=== PATIENT | female | born 1990 | race Two or more races ===

== ENCOUNTER 2021-10-23 10:28 | Inpatient (IN) | payer MEDICAID, OTHER ==
[~2021-10-23] VITALS: Ht 154.9 cm; Wt 84.9 kg
[2021-10-23 12:09] LABS: Basophils # (auto) 0.1 10 ^3/uL (0-0.2); Basophils % (auto) 1.2 % (0.0-2.0); Eosinophils # (auto) 0.2 10 ^3/uL (0-0.8); Eosinophils % (auto) 2.9 % (0.0-7.0); Hematocrit 41.9 % (36.0-46.0); Hemoglobin 14.2 g/dL (12.2-16.2); Lymphocytes # (auto) 2.2 10 ^3/uL (0.4-5.4); Lymphocytes % (auto) 29.7 % (10.0-50.0); Mean Corpuscular Hgb Conc. 33.9 g/dL (32.0-36.0); Mean Corpuscular Volume 88.5 fL (80.0-100.0); Monocytes # (auto) 0.6 10 ^3/uL (0-1.3); Monocytes % (auto) 7.7 % (0.0-12.0); Neutrophils # (auto) 4.3 10 ^3/uL (1.6-8.6); Neutrophils % (auto) 58.5 % (37.0-80.0); Nucleated Red Blood Cells % 0.3 %; Red Blood Cells 4.73 10^6/uL (4.0-5.20); Red Cell Distribution Width 13.4 % (11.8-14.3); White Blood Cell 7.3 10^3/uL (4.4-10.8)
[2021-10-23 12:22] LABS: Calcium 9.2 mg/dL (8.5-10.1); Potassium 3.8 mmol/L (3.5-5.1)
[2021-10-23 12:27] LABS: BUN/Creatinine Ratio 13.7; Bilirubin, Total 0.4 mg/dL (0.2-1.0); Total Protein 8.2 g/dL (6.4-8.2)
[2021-10-23 20:22] LABS: Urine Bacteria NONE SEEN /hpf (None Seen); Urine Blood 1+ /uL (Negative); Urine Mucus FEW (None Seen); Urine Specific Gravity 1.032 (1.001-1.035); Urine WBC 1 /hpf (0 - 5)
[2021-10-23] MEDS ORDERED: ENOXAPARIN SOD 40 MG/0.4 ML SYRINGE SC ONE (21:45)
[2021-10-23] MEDS ORDERED: ONDANSETRON HCL 4 MG/2 ML VIAL IV PRN (21:45)
[2021-10-23] MEDS ORDERED: HYDROmorphone HCL 2 MG/ML VL IV PRN (21:45)
[2021-10-23] MEDS ORDERED: SODIUM CHLORIDE 0.9% 1,000 ML IV ONE (21:45)
[2021-10-23] MEDS ORDERED: MORPHINE SULFATE INJECTION 2 MG/ML SYRG IV PRN (21:45)
[2021-10-23] MEDS ORDERED: NITROGLYCERIN 0.4 MG SL TAB SL PRN (21:45)
[2021-10-23] MEDS ORDERED: PANTOPRAZOLE 40 MG TAB PO ONE (22:00)
[2021-10-23] MEDS: CIPROFLOXACIN 400MG/200ML 200 ML IV SCH (22:45)
[2021-10-23] MEDS: HYDROcodone-ACET 5/325MG TAB PO PRN (23:05)
[2021-10-24] MEDS: metroNIDAZOLE 500MG/100ML 100 ML IV SCH ×4 (00:28→22:57)
[2021-10-24 01:45] VITALS: BP 126/87
[2021-10-24] MEDS ORDERED: PNEUMOCOCCAL VACC POLYS 25 MCG/0.5 ML VIAL IM ONE (02:00)
[2021-10-24] MEDS ORDERED: INFLUENZA QUAD 2021-2022 0.5 ML SYRG IM ONE (02:00)
[2021-10-24 06:02] LABS: Basophils # (auto) 0.1 10 ^3/uL (0-0.2); Basophils % (auto) 0.9 % (0.0-2.0); Eosinophils # (auto) 0.2 10 ^3/uL (0-0.8); Eosinophils % (auto) 3.4 % (0.0-7.0); Hemoglobin 13.4 g/dL (12.2-16.2); Lymphocytes # (auto) 2.6 10 ^3/uL (0.4-5.4); Lymphocytes % (auto) 36.3 % (10.0-50.0); Mean Corpuscular Hemoglobin 30.4 pg (28.0-32.0); Mean Corpuscular Hgb Conc. 34.4 g/dL (32.0-36.0); Mean Corpuscular Volume 88.4 fL (80.0-100.0); Monocytes # (auto) 0.6 10 ^3/uL (0-1.3); Monocytes % (auto) 8.1 % (0.0-12.0); Neutrophils # (auto) 3.7 10 ^3/uL (1.6-8.6); Neutrophils % (auto) 51.3 % (37.0-80.0); Nucleated Red Blood Cells % 0.1 %; Red Blood Cells 4.41 10^6/uL (4.0-5.20); Red Cell Distribution Width 13.2 % (11.8-14.3); White Blood Cell 7.2 10^3/uL (4.4-10.8)
[2021-10-24 06:24] LABS: Albumin 3.6 g/dL (3.4-5.0); Calcium 8.6 mg/dL (8.5-10.1); Potassium 3.7 mmol/L (3.5-5.1)
[2021-10-24 06:27] LABS: Bilirubin, Total 0.4 mg/dL (0.2-1.0); Total Protein 7.2 g/dL (6.4-8.2)
[2021-10-24 09:00] VITALS: BP 91/61
[2021-10-24] MEDS: CIPROFLOXACIN 400MG/200ML 200 ML IV SCH ×2 (10:23→21:29)
[2021-10-24 12:19] VITALS: BP 107/58
[2021-10-24 13:00] VITALS: BP 105/70
[2021-10-24 14:26] LABS: INR 1.07 (0.9-1.15); Partial Thromboplastin Time 30.9 sec (23.6-33.0)
[2021-10-24 17:00] VITALS: BP 95/60
[2021-10-24 22:00] VITALS: BP 110/79
[2021-10-24] MEDS: HYDROcodone-ACET 5/325MG TAB PO PRN (22:32)
[2021-10-25 05:00] VITALS: BP 102/67
[2021-10-25] MEDS: metroNIDAZOLE 500MG/100ML 100 ML IV SCH ×3 (05:54→23:29)
[2021-10-25] MEDS ORDERED: BUPIVACAINE 0.25% INJ 50ML VIAL ONE (06:47)
[2021-10-25] MEDS ORDERED: LIDOCAINE 1% HCL (LOCAL ANESTH.) INJ 20ML MDV ONE (06:47)
[2021-10-25] MEDS ORDERED: DOXAPRAM HCL 20 MG/ML 20ML VIAL INJ IV ONE (06:54)
[2021-10-25] MEDS ORDERED: SUCCINYLCHOLINE CHLORIDE 20 MG/ML 10ML VIAL IV ONE (06:54)
[2021-10-25] MEDS ORDERED: CISATRACURIUM BESYLATE (2MG/ML) 5ML VIAL IV ONE (06:55)
[2021-10-25] MEDS ORDERED: ROCURONIUM 10MG/ML 10ML VIAL IV ONE (06:55)
[2021-10-25] MEDS ORDERED: NEOSTIGMINE 1 MG/ML INJ (10mg/10ML VIAL) ONE (07:11)
[2021-10-25] MEDS ORDERED: GLYCOPYRROLATE 0.2 MG/ML 1ML VIAL ONE (07:11)
[2021-10-25] MEDS ORDERED: PROPOFOL 10 MG/ML 20 ML IV ONE (07:11)
[2021-10-25] MEDS ORDERED: ONDANSETRON HCL 4 MG/2 ML VIAL ONE (07:11)
[2021-10-25] MEDS ORDERED: SODIUM CHLORIDE LOCK 10 ML ONE (07:11)
[2021-10-25] MEDS ORDERED: fentaNYL CITRATE 5 ML ONE (07:11)
[2021-10-25] MEDS ORDERED: MIDAZOLAM HCL 2MG/2ML 2ml VIAL (1mg/ml) ONE (07:11)
[2021-10-25] MEDS ORDERED: HYDROmorphone HCL 2 MG/ML VL IV PRN (07:15)
[2021-10-25] MEDS ORDERED: MORPHINE SULFATE 4 MG/ML SYR/VIAL IV PRN (07:15)
[2021-10-25] MEDS ORDERED: METOCLOPRAMIDE HCL 5MG/ml INJ 2ml VIAL IV PRN (07:15)
[2021-10-25] MEDS ORDERED: CLINDAMYCIN 600MG IV 50 ML IV ONE (07:31)
[2021-10-25] MEDS ORDERED: BUPIVACAINE W/ EPINEPH 0.25% INJ 50ML MDV ONE (07:38)
[2021-10-25] MEDS ORDERED: DexAMETHasone SOD PHOS 10MG/1ML VIAL INJ ONE (07:42)
[2021-10-25] MEDS: CIPROFLOXACIN 400MG/200ML 200 ML IV SCH ×2 (10:00→21:34)
[2021-10-25] MEDS ORDERED: POVIDONE IODINE 10 % TOPICAL OINT 30GM TOP ONE (10:12)
[2021-10-25] MEDS ORDERED: SODIUM CHLORIDE 0.9% 1,000 ML IV SCH (10:45)
[2021-10-25] MEDS ORDERED: HYDROmorphone HCL 2 MG/ML VL ONE (10:47)
[2021-10-25 13:00] VITALS: BP 115/67
[2021-10-25 17:00] VITALS: BP 107/69
[2021-10-25] MEDS: HYDROcodone-ACET 5/325MG TAB PO PRN (20:57)
[2021-10-25 22:00] VITALS: BP 97/55
[2021-10-25 23:47] LABS: Basophils # (auto) 0 10 ^3/uL (0-0.2); Basophils % (auto) 0.1 % (0.0-2.0); Eosinophils # (auto) 0 10 ^3/uL (0-0.8); Hematocrit 40.9 % (36.0-46.0); Lymphocytes # (auto) 0.5 10 ^3/uL (0.4-5.4); Mean Corpuscular Hemoglobin 30.4 pg (28.0-32.0); Mean Corpuscular Hgb Conc. 34.2 g/dL (32.0-36.0); Mean Corpuscular Volume 88.7 fL (80.0-100.0); Monocytes # (auto) 0.4 10 ^3/uL (0-1.3); Monocytes % (auto) 2.4 % (0.0-12.0); Neutrophils % (auto) 94.5 % (37.0-80.0); Red Blood Cells 4.61 10^6/uL (4.0-5.20)
[2021-10-26 00:03] LABS: Albumin 3.6 g/dL (3.4-5.0); Calcium 8.6 mg/dL (8.5-10.1); Potassium 3.9 mmol/L (3.5-5.1)
[2021-10-26 00:07] LABS: BUN/Creatinine Ratio 9.9; Bilirubin, Total 0.2 mg/dL (0.2-1.0); Total Protein 7.5 g/dL (6.4-8.2)
[2021-10-26 05:00] VITALS: BP 90/54
[2021-10-26] MEDS: metroNIDAZOLE 500MG/100ML 100 ML IV SCH ×3 (05:46→23:00)
[2021-10-26 08:23] LABS: Basophils # (auto) 0.1 10 ^3/uL (0-0.2); Basophils % (auto) 0.3 % (0.0-2.0); Eosinophils # (auto) 0 10 ^3/uL (0-0.8); Eosinophils % (auto) 0.1 % (0.0-7.0); Hemoglobin 12.8 g/dL (12.2-16.2); Lymphocytes # (auto) 1.6 10 ^3/uL (0.4-5.4); Lymphocytes % (auto) 10.6 % (10.0-50.0); Mean Corpuscular Hemoglobin 30.6 pg (28.0-32.0); Mean Corpuscular Hgb Conc. 34.7 g/dL (32.0-36.0); Mean Corpuscular Volume 88.3 fL (80.0-100.0); Monocytes # (auto) 1.2 10 ^3/uL (0-1.3); Monocytes % (auto) 7.7 % (0.0-12.0); Neutrophils # (auto) 12.5 10 ^3/uL (1.6-8.6); Neutrophils % (auto) 81.3 % (37.0-80.0); Red Blood Cells 4.19 10^6/uL (4.0-5.20); Red Cell Distribution Width 13.2 % (11.8-14.3); White Blood Cell 15.4 10^3/uL (4.4-10.8)
[2021-10-26 08:36] LABS: Potassium 3.6 mmol/L (3.5-5.1)
[2021-10-26 08:41] LABS: BUN/Creatinine Ratio 9.4; Calcium 8.6 mg/dL (8.5-10.1)
[2021-10-26 09:00] VITALS: BP 105/67
[2021-10-26] MEDS: CIPROFLOXACIN 400MG/200ML 200 ML IV SCH ×2 (10:00→21:56)
[2021-10-26 13:00] VITALS: BP 107/75
[2021-10-26] MEDS: HYDROcodone-ACET 5/325MG TAB PO PRN ×2 (13:29→19:02)
[2021-10-26 17:00] VITALS: BP 112/67
[2021-10-26] MEDS: DOCUSATE SOD 100 MG CAP PO PRN (19:03)
[2021-10-26 21:44] VITALS: BP 107/65
[2021-10-27] MEDS: HYDROcodone-ACET 5/325MG TAB PO PRN ×2 (02:54→10:20)
[2021-10-27 04:37] VITALS: BP 112/63
[2021-10-27 06:04] LABS: Basophils # (auto) 0.1 10 ^3/uL (0-0.2); Basophils % (auto) 0.7 % (0.0-2.0); Eosinophils # (auto) 0.1 10 ^3/uL (0-0.8); Eosinophils % (auto) 0.8 % (0.0-7.0); Hematocrit 35.8 % (36.0-46.0); Hemoglobin 12.4 g/dL (12.2-16.2); Lymphocytes # (auto) 2.8 10 ^3/uL (0.4-5.4); Lymphocytes % (auto) 25.9 % (10.0-50.0); Mean Corpuscular Hemoglobin 30.7 pg (28.0-32.0); Mean Corpuscular Hgb Conc. 34.7 g/dL (32.0-36.0); Mean Corpuscular Volume 88.6 fL (80.0-100.0); Monocytes # (auto) 0.8 10 ^3/uL (0-1.3); Monocytes % (auto) 7.2 % (0.0-12.0); Neutrophils % (auto) 65.4 % (37.0-80.0); Nucleated Red Blood Cells % 0.1 %; Red Blood Cells 4.04 10^6/uL (4.0-5.20); Red Cell Distribution Width 13.4 % (11.8-14.3); White Blood Cell 10.7 10^3/uL (4.4-10.8)
[2021-10-27] MEDS: metroNIDAZOLE 500MG/100ML 100 ML IV SCH ×3 (06:13→23:30)
[2021-10-27 06:14] LABS: Potassium 3.6 mmol/L (3.5-5.1)
[2021-10-27 06:19] LABS: Albumin 3.1 g/dL (3.4-5.0); BUN/Creatinine Ratio 9.7; Bilirubin, Total 0.3 mg/dL (0.2-1.0); Calcium 8.5 mg/dL (8.5-10.1); Total Protein 6.5 g/dL (6.4-8.2)
[2021-10-27 09:00] VITALS: BP 107/69
[2021-10-27] MEDS: DOCUSATE SOD 100 MG CAP PO PRN (10:19)
[2021-10-27] MEDS: CIPROFLOXACIN 400MG/200ML 200 ML IV SCH ×2 (10:22→22:30)
[2021-10-27] MEDS ORDERED: HYDR1TAB97 PO (10:54)
[2021-10-27] MEDS ORDERED: CIPR500T4 PO (10:54)
[2021-10-27] MEDS ORDERED: ACET1CAP14 PO (10:54)
[2021-10-27] MEDS ORDERED: DOCU100C10 PO (10:54)
[2021-10-27] MEDS ORDERED: SENNA 8.6 MG TAB PO PRN (11:00)
[2021-10-27] MEDS ORDERED: POLYETHYLENE GLYCOL 17 GM PWDR PO PRN (11:00)
[2021-10-27 13:00] VITALS: BP 109/66
[2021-10-28] MEDS: metroNIDAZOLE 500MG/100ML 100 ML IV SCH ×2 (05:20→13:12)
[2021-10-28 06:08] LABS: Basophils # (auto) 0.1 10 ^3/uL (0-0.2); Basophils % (auto) 0.6 % (0.0-2.0); Eosinophils # (auto) 0.2 10 ^3/uL (0-0.8); Eosinophils % (auto) 2.6 % (0.0-7.0); Hematocrit 38.3 % (36.0-46.0); Hemoglobin 13.3 g/dL (12.2-16.2); Lymphocytes % (auto) 32.6 % (10.0-50.0); Mean Corpuscular Hemoglobin 30.9 pg (28.0-32.0); Mean Corpuscular Hgb Conc. 34.8 g/dL (32.0-36.0); Mean Corpuscular Volume 88.6 fL (80.0-100.0); Monocytes # (auto) 0.7 10 ^3/uL (0-1.3); Monocytes % (auto) 7.1 % (0.0-12.0); Neutrophils # (auto) 5.2 10 ^3/uL (1.6-8.6); Neutrophils % (auto) 57.1 % (37.0-80.0); Red Blood Cells 4.32 10^6/uL (4.0-5.20); Red Cell Distribution Width 13.2 % (11.8-14.3); White Blood Cell 9.2 10^3/uL (4.4-10.8)
[2021-10-28 06:18] LABS: Potassium 3.7 mmol/L (3.5-5.1)
[2021-10-28 06:21] VITALS: BP 103/63
[2021-10-28 06:24] LABS: Albumin 3.1 g/dL (3.4-5.0); BUN/Creatinine Ratio 10.3; Bilirubin, Total 0.4 mg/dL (0.2-1.0); Calcium 8.9 mg/dL (8.5-10.1); Total Protein 7.2 g/dL (6.4-8.2)
[2021-10-28 08:00] VITALS: BP 120/42
[2021-10-28 08:30] VITALS: BP 120/42
[2021-10-28] MEDS: CIPROFLOXACIN 400MG/200ML 200 ML IV SCH (09:43)
[2021-10-28 12:55] VITALS: BP 107/58
== END 2021-10-28 17:48 | disposition home or self-care (01) | DRG 263 ==
LOC: ER 10:28 → OVERFLOW 21:35 → WEST WING 23:00
PROVIDERS: ADMIT Surgery; ATTEND Internal Medicine
PROC: 3E02340 Introduction of Influenza Vaccine into Muscle, Percutaneous Approach (ICD-10-PCS; 2021-10-24)
PROC: 0DNU4ZZ Release Omentum, Percutaneous Endoscopic Approach (ICD-10-PCS; 2021-10-25)
PROC: 0FT44ZZ Resection of Gallbladder, Percutaneous Endoscopic Approach (ICD-10-PCS; principal; 2021-10-25 07:29)
DX: K80.13 Calculus of gallbladder with acute and chronic cholecystitis with obstruction (principal); K82.A1 Gangrene of gallbladder in cholecystitis; K66.0 Peritoneal adhesions (postprocedural) (postinfection); Z20.822 Contact with and (suspected) exposure to COVID-19; Z88.0 Allergy status to penicillin; Z83.3 Family history of diabetes mellitus; Z82.49 Family history of ischemic heart disease and other diseases of the circulatory system; Z23 Encounter for immunization
CPT/HCPCS: 36415; 74181; 76705; 78226; 80048; 80053; 81001; 81025; 82150; 83690; 85025; 85610; 85730; 86850; 86900; 86901; 87426; 96372; G0378; J0330; J1100; J2001; J2250; J2405; J2704; J3490

== ENCOUNTER 2021-11-03 11:26 | Emergency (ER) | payer MEDICAID ==
[~2021-11-03] VITALS: Ht 154.9 cm; Wt 77.6 kg
[~2021-11-03 11:26] MED LIST: ACET1CAP14 PO; CIPR500T4 PO; DOCU100C10 PO; HYDR1TAB97 PO
[2021-11-03 12:03] LABS: Basophils # (auto) 0.1 10 ^3/uL (0-0.2); Basophils % (auto) 0.8 % (0.0-2.0); Eosinophils # (auto) 0.4 10 ^3/uL (0-0.8); Eosinophils % (auto) 3.1 % (0.0-7.0); Hematocrit 42.5 % (36.0-46.0); Hemoglobin 14.7 g/dL (12.2-16.2); Lymphocytes % (auto) 7.3 % (10.0-50.0); Mean Corpuscular Hemoglobin 30.6 pg (28.0-32.0); Mean Corpuscular Hgb Conc. 34.6 g/dL (32.0-36.0); Mean Corpuscular Volume 88.5 fL (80.0-100.0); Monocytes # (auto) 0.6 10 ^3/uL (0-1.3); Monocytes % (auto) 4.7 % (0.0-12.0); Neutrophils # (auto) 11.3 10 ^3/uL (1.6-8.6); Neutrophils % (auto) 84.1 % (37.0-80.0); Red Cell Distribution Width 13.1 % (11.8-14.3); White Blood Cell 13.4 10^3/uL (4.4-10.8)
[2021-11-03 12:21] LABS: Albumin 3.9 g/dL (3.4-5.0); BUN/Creatinine Ratio 9.4; Calcium 9.5 mg/dL (8.5-10.1); Potassium 3.9 mmol/L (3.5-5.1)
[2021-11-03 12:23] LABS: Bilirubin, Total 0.4 mg/dL (0.2-1.0); Total Protein 8.5 g/dL (6.4-8.2)
[2021-11-03 14:37] VITALS: BP 112/68
== END 2021-11-03 14:38 | disposition home or self-care (01) ==
LOC: ER 11:26
DX: R10.30 Lower abdominal pain, unspecified (principal); Z90.49 Acquired absence of other specified parts of digestive tract; Z79.2 Long term (current) use of antibiotics; Z79.899 Other long term (current) drug therapy; Z88.0 Allergy status to penicillin
CPT/HCPCS: 36415; 74176; 80053; 85025

== ENCOUNTER 2022-09-03 20:38 | Emergency (ER) | payer MEDICAID ==
[~2022-09-03] VITALS: Ht 154.9 cm; Wt 88.5 kg
[2022-09-04 03:20] VITALS: BP 119/79
[2022-09-04] MEDS ORDERED: OSEL75CA5 PO (03:23)
== END 2022-09-04 03:46 | disposition home or self-care (01) ==
LOC: ER 20:38
DX: J10.1 Influenza due to other identified influenza virus with other respiratory manifestations (principal); Z20.822 Contact with and (suspected) exposure to COVID-19
CPT/HCPCS: 36415; 71046; 87426; 87804

== ENCOUNTER 2025-02-05 15:07 | Emergency (ER) | payer MEDICAID ==
[~2025-02-05] VITALS: Ht 154.9 cm; Wt 77.9 kg
[~2025-02-05 15:07] MED LIST changes: +DOCU-265 PO; -DOCU100C10 PO; +OSEL75CA5 PO
[2025-02-05 15:29] VITALS: BP 130/77; PULSE 80; RESP 16; TEMP 98.2; O2SAT 95
[2025-02-05] MEDS ORDERED: CLIN150C PO (15:52)
--- NOTE | 2025-02-05 15:53 | ED.PDOC ---
Eye-HPI HPI Comments This is a 34-year-old female that comes in with throat pain for approximately 1 week she was seen in the urgent care on Thursday she was given Zithromax and ibuprofen although she feels that the medicine did not help her a bit. He has pain when she swallows. No more fevers but she continues to have chills no other symptoms. Chief Complaint: Sore Throat Time Seen by MD: 15:21 Primary Care Provider: BERRIOS Reviewed Notes: Nurses Notes, Medications, Allergies Allergies: Coded Allergies: Penicillins (Verified Allergy, Unknown, 10/23/21) Home Meds Active Scripts Oseltamivir Phosphate (Tamiflu) 75 Mg Cap, 1 CAP PO BID for 5 Days, #10 CAP 0 Refills Prov:WAI FARIA 09/04/22 Hydrocodone-Acetaminophen (Hydrocodone/Acetaminophen 5-325 mg) 1 Tab Tab, 1 TAB PO Q6HPRN PRN MDD pain 6-10, #20 TAB Prov:GRISEL NGUYEN MD 10/27/21 Acetaminophen (Tylenol) 325 Mg Cap, 650 MG PO Q6HR PRN MDD pain 1-5, #40 CAP Prov:GRISEL NGUYEN MD 10/27/21 Ciprofloxacin Hcl (Ciprofloxacin Hcl) 500 Mg Tab, 500 MG PO BID, #10 MG Prov:GRISEL NGUYEN MD 10/27/21 Docusate Sodium (Docusate Sodium) 100 Mg Cap, 100 MG PO BIDPRN PRN, #60 CAP Prov:GRISEL NGUYEN MD 10/27/21 Information Source: Patient Mode of Arrival: Ambulatory Past Medical History PAST MEDICAL HISTORY: Denies Surgical History: Cholecystectomy, [employer] History: No Pertinent [employer] History Family History Family History: Reviewed,noncontributory to illness, Family hx of heart yadi Social History Smoker: Non-Smoker Alcohol: Rarely Drugs: Denies Drug Use Lives In: Home Constitutional: reports: chills EENTM: reports: throat pain, throat swelling All Other Systems: Reviewed and Negative Physical Exam General Appearance: No Apparent Distress, Normal HEENT: Normal ENT Inspection, PERRL/EOMI, Pharyngeal Erythema, TMs Normal Neck: Lymphadenopathy (R), Lymphadenopathy (L), Normal Inspection, Supple Respiratory: Lungs Clear, No Respiratory Distress Cardiovascular: Regular Rate/Rhythm Breast Exam: Deferred Gastrointestinal: Non Tender, Soft Genitalia: Deferred Pelvic: Deferred Rectal: Deferred Extremities: Normal inspection, Normal range of motion, Non-tender Neurologic: Alert, Normal Mood Cerebellar Function: NOT DONE Reflexes: NOT DONE Skin: Dry, Warm Lymphatic: No Adenopathy Was a procedure done? Was a procedure done?: No EENT DIFF Eye: N/A Sore Throat: Epiglottitis, URI X-Ray, Labs, Meds, VS Vital Signs Date Time Temp Pulse Resp B/P (MAP) Pulse Ox O2 Delivery O2 Flow Rate FiO2 02/05/25 15:29 98.2 80 16 130/77 (94) 95 98.2 02/05/25 15:29 80 16 95 Room Air 02/05/25 15:19 98.2 80 16 130/77 (94) 95 98.2 X-Ray, Labs, Meds, VS Comment Patient seen and examined by me. Patient has been on Zithromax since earlier this week on Thursday but has had no improvement on her symptoms. I will switch antibiotics to clindamycin as she is allergic to penicillin. Instructed to continue to take Motrin as needed rest and fluids. Time of 1ST Reevaluation: 15:50 Reevaluation 1ST: Unchanged Reevaluation 2ND: Unchanged Patient Education/Counseling: Diagnosis, Treatment, Prognosis, Need For Follow Up Family Education/Counseling: No Family Present Departure 1 Departure Time of Disposition: 15:51 Impression: Primary Impression: Pharyngitis Disposition: 01 HOME / SELF CARE / HOMELESS Condition: Good Additional Instructions: Please continue taking the Motrin as directed Start the new antibiotic today if possible Rinse your mouth after eating Eat any spicy or citrus food as it will hurt the sores in her mouth e-Prescriptions Clindamycin Hcl (CLEOCIN) 150 Mg Cap 1 CAP PO TID for 7 Days, #30 CAP Prov: MARLO MARTINEZ 02/05/25 Discharged With: Self Critical Care Note Critical Care Time?: No Stability Stability form required: MARLO Montero Feb 05, 2025 15:53
== END 2025-02-05 16:05 | disposition home or self-care (01) ==
LOC: ER 15:07
DX: J02.9 Acute pharyngitis, unspecified (principal); Z90.49 Acquired absence of other specified parts of digestive tract; Z88.0 Allergy status to penicillin